=== PATIENT | female | born 1945 | race Caucasian/White ===

== ENCOUNTER 2017-07-29 10:00 | Emergency (ER) | payer MEDICARE, OTHER ==
--- NOTE | 2017-07-29 12:00 | RAD ---
HISTORY: Status post knee replacement, calf pain COMPARISONS: None relevant TECHNIQUE: Multiple transverse and longitudinal ultrasound images were obtained of the right lower extremity from the level of the common femoral vein inferiorly through to the infrapopliteal veins using grayscale, color Doppler, and spectral Doppler imaging with and without compression and with augmentation. Comparison images were obtained of the contralateral common femoral vein. FINDINGS: VEINS: The venous system of the right lower extremity is compressible throughout its course, with normal flow on color Doppler imaging and normal response to augmentation on spectral Doppler imaging. SOFT TISSUES: Unremarkable. OTHER FINDINGS: None. IMPRESSION: NO RIGHT LOWER EXTREMITY DEEP VEIN THROMBOSIS
[2017-07-29 12:44] VITALS: BP 140/79
--- NOTE | 2017-07-29 17:41 | ED ---
Lower Extremity - HPI Summary HPI Summary: Patient is a 72-year-old female who presents to the ED s/p knee replacement several weeks ago with a concern for a DVT. She endorses acute onset right calf tenderness, worse with palpation and dorsiflexion. Worse with ambulation and better with rest. She continues to take 2 baby aspirin daily and has been using compression hose daily. Immediately following surgery, pneumatic devices to the legs were applied. She continues to exercise the leg frequently and continues to go to physical therapy. She denies any chest pain or shortness of breath. She denies any history of PE or DVT. - History of Current Complaint Chief Complaint: EDSoftTissueLowExtr Stated Complaint: RT CALF PAIN Time Seen by Provider: 07/29/17 10:10 Hx Obtained From: Patient Onset of Pain: Hours Onset/Duration: Hours Severity Initially: Moderate Severity Currently: Moderate Pain Intensity: 1 Pain Scale Used: 0-10 Numeric Timing: Constant Location: Is Discrete @ - R calf pain Character Of Pain: Aching Associated Signs And Symptoms: Positive: Swelling, Redness Aggravating Factor(s): Standing, Ambulation Alleviating Factor(s): Rest Able to Bear Weight: Yes - Risk Factors Gout Risk Factors: Negative DVT Risk Factors: Recent Period Of Bedrest, Recent Surgery - ,, Recent Trauma Septic Arthritis Risk Factor: Extremes of Age - Allergies/Home Medications Allergies/Adverse Reactions: Allergies Allergy/AdvReac Type Severity Reaction Status Date / Time Sulfa (Sulfonamide Allergy Unknown Verified 07/29/17 10:05 Antibiotics) Reaction Details tree nut Allergy Anaphylatic Verified 07/29/17 10:05 Shock Home Medications: Home Medications Acetaminophen [Tylenol 8 Hour] 650 mg PO Q8H PRN MDD 4000mg 07/29/17 [History Confirmed 07/29/17] Acetaminophen [Tylenol Extra Strength] 500 - 1,000 mg PO Q6H PRN 07/29/17 [ History Confirmed 07/29/17] Aspirin EC TAB* [Ecotrin EC Low Dose 81 MG*] 81 mg PO QAM 07/29/17 [History Confirmed 07/29/17] BuPROPion XL* [Bupropion XL*] 300 mg PO QAM 07/29/17 [History Confirmed 07/29/17 ] Cholestyramine Resin* [Questran*] 2 - 4 gm PO QPM 07/29/17 [History Confirmed ] Levothyroxine TAB* [Synthroid TAB*] 125 mcg PO QAM 07/29/17 [History Confirmed 07/29/17] Losartan TAB* [Cozaar TAB*] 25 mg PO QAM 07/29/17 [History Confirmed 07/29/17] Meloxicam(NF) [Mobic(NF)] 15 mg PO DAILY 07/29/17 [History Confirmed 07/29/17] PMH/Surg Hx/FS Hx/Imm Hx Previously Healthy: Yes Musculoskeletal History: Denies: Hx Osteoporosis - Cancer History Hx Chemotherapy: No Hx Radiation Therapy: No - Immunization History Hx Pertussis Vaccination: No Immunizations Up to Date: No - review changes. No Infectious Disease History: No Infectious Disease History: Denies: Traveled Outside the [place] in Last 30 Days - Social History Occupation: Unemployed Lives: With Family Alcohol Use: None Hx Substance Use: No Substance Use Type: Reports: None Hx Tobacco Use: No Smoking Status (MU): Never Smoked Tobacco Review of Systems Constitutional: Negative Negative: Fever, Chills, Fatigue Cardiovascular: Negative Negative: Palpitations, Chest Pain Respiratory: Negative Negative: Shortness Of Breath, Cough Genitourinary: Negative Positive: no symptoms reported, see HPI Positive: Myalgia - R calf pain Negative: Rash, Bruising Negative: Headache, Weakness Psychological: Normal All Other Systems Reviewed And Are Negative: Yes Physical Exam Triage Information Reviewed: Yes Vital Signs On Initial Exam: Initial Vitals Temp Pulse Resp BP Pulse Ox 98.9 F 111 18 127/85 98 07/29/17 10:05 07/29/17 10:05 07/29/17 10:05 07/29/17 10:05 07/29/17 10:05 Vital Signs Reviewed: Yes Appearance: Positive: Well-Appearing, No Pain Distress, Well-Nourished Skin: Positive: Warm, Skin Color Reflects Adequate Perfusion Head/Face: Positive: Normal Head/Face Inspection Cardiovascular: Positive: Normal, RRR, Pulses are Symmetrical in both Upper and Lower Extremities Musculoskeletal: Positive: Normal, Strength/ROM Intact, Jc Sign Right. Negative: Edema Left, Edema Right Neurological: Positive: Normal, Sensory/Motor Intact, Alert, Oriented to Person Place, Time, Speech Normal Psychiatric: Positive: Normal, Affect/Mood Appropriate Diagnostics - Vital Signs Vital Signs Temp Pulse Resp BP Pulse Ox 07/29/17 12:43 98.8 F 96 17 140/79 98 07/29/17 10:05 98.9 F 111 18 127/85 98 - Laboratory Lab Statement: Any lab studies that have been ordered have been reviewed, and results considered in the medical decision making process. Lower Extremity Course/Dx - Course Course Of Treatment: Patient is evaluated for DVT. Ultrasound obtained which shows no right lower extremity DVT. Discussed this with patient and . I have encouraged him to follow back up with her PCP as well as her surgeon. On physical examination there is a positive Homans sign. No erythema or tightness to the ipsilateral lower extremity. There is no palpable cord. They have requested information be sent to their physicians. - Diagnoses Provider Diagnoses: Right calf pain Discharge - Sign-Out/Discharge Documenting (check all that apply): Discharge/Admit/Transfer - Discharge Plan Condition: Stable Disposition: HOME Referrals: Jahaira Matthews MD [Primary Care Provider] - Additional Instructions: Medical records will be sent Continue with PT Follow up with surgeon as scheduled - Billing Disposition and Condition Condition: STABLE Disposition: HOME
== END 2017-07-29 12:43 | disposition home or self-care (01) ==
LOC: ED 10:00
DX: M79.661 Pain in right lower leg (principal); Z96.659 Presence of unspecified artificial knee joint; Z88.2 Allergy status to sulfonamides
CPT/HCPCS: 99282